=== PATIENT | female | born 1975 | race Asian ===

== ENCOUNTER 2019-01-26 15:29 | Emergency (ER) | payer OTHER ==
[~2019-01-26] VITALS: Ht 170.2 cm; Wt 67.1 kg
[2019-01-26 15:30] VITALS: BP 109/47
[2019-01-26] MEDS ORDERED: HYDR-3165 PO (16:00)
--- NOTE | 2019-01-26 16:00 | PHYS DOC ---
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 Patient indicates that she is out here on training and accidentally left her pain medication on the airplane. She states that she was told to come to the emergency room for prescription refill. Patient is treated with hydrocodone for complex regional pain syndrome.[] Review of Systems Review of Systems Constitutional: Denies fever or chills [] Respiratory: Denies cough or shortness of breath [] Cardiovascular: No additional information not addressed in HPI [] Musculoskeletal: Complains of chronic left foot pain [] Integument: Denies rash or skin lesions [] Allergies Allergies Allergies Coded Allergies Type Severity Reaction Last Updated Verified bupropion Allergy Unknown 01/26/19 Yes Physical Exam Physical Exam Constitutional: Well developed, well nourished, no acute distress, non-toxic appearance. [] Cardiovascular:Heart rate regular rhythm, no murmur [] Lungs & Thorax: Bilateral breath sounds clear to auscultation [] Skin: Warm, dry, no erythema, no rash. [] EKG EKG [] Radiology/Procedures Radiology/Procedures [] Course & Med Decision Making Course & Med Decision Making Pertinent Labs and Imaging studies reviewed. (See chart for details) [] Dragon Disclaimer Dragon Disclaimer This electronic medical record was generated, in whole or in part, using a voice recognition dictation system. Departure Departure: Impression: Primary Impression: Chronic pain Additional Impression: Encounter for medication refill Disposition: 01 HOME, SELF-CARE Condition: STABLE Referrals: CORRIE PATEL PA-C (PCP) Patient Instructions: Chronic Pain Scripts Hydrocodone Bit/Acetaminophen (NORCO 5-325 TABLET) 1 Each Tablet 1 TAB PO PRN Q6HRS PRN for PAIN, #12 TAB 0 Refills Prov: LEANNA VEGA Jr. DO 01/26/19 Problem Qualifiers Primary Impression: Chronic pain Chronic pain type: other chronic pain Qualified Codes: G89.29 - Other chronic pain LEANNA VEGA Jr. DO Jan 26, 2019 16:00
== END 2019-01-26 16:20 | disposition home or self-care (01) ==
LOC: ER 15:29
DX: G89.29 Other chronic pain (principal); M79.672 Pain in left foot; Z76.0 Encounter for issue of repeat prescription; Z88.8 Allergy status to other drugs, medicaments and biological substances
CPT/HCPCS: 99283